=== PATIENT | female | born 1955 | race Caucasian/White ===

== ENCOUNTER → 2019-12-18 | Outpatient (CLI) | payer BC ==
[~2019-12-18] MED LIST: ALTACE10 MG PO; AMBIEN 10 MG TA10 MG; ASPIRIN EC325 M1; GLUCOPHAGE1000 MG PO; LIPITOR 10 MG10 M1 PO; METFORMIN HCL500 MG PO; PERCOCET PO; SYNTHROID50 MCG; TOPROL XL25 MG PO; ULTRA-LIGHT RO1 EACH MC
== END ==
LOC: SJCVCIMAG 13:19
PROVIDERS: ATTEND Internal Medicine Cardiovascular Disease
DX: I25.10 Atherosclerotic heart disease of native coronary artery without angina pectoris (principal); I47.1 Supraventricular tachycardia; I10 Essential (primary) hypertension; E11.9 Type 2 diabetes mellitus without complications; E78.5 Hyperlipidemia, unspecified

== ENCOUNTER → 2020-12-18 | Outpatient (CLI) | payer OTHER | LOC: SJCVCIMAG 06:51 | PROVIDERS: ATTEND Internal Medicine Cardiovascular Disease | DX: I07.1 Rheumatic tricuspid insufficiency (principal); I25.10 Atherosclerotic heart disease of native coronary artery without angina pectoris; I10 Essential (primary) hypertension; E78.5 Hyperlipidemia, unspecified; Z98.61 Coronary angioplasty status ==